=== PATIENT | female | born 1950 | race Caucasian/White ===

== ENCOUNTER 2017-10-11 16:59 | Emergency (ER) | payer OTHER ==
[2017-10-11] MEDS ORDERED: Ibuprofen TAB* 600 MG PO ONE (17:25)
--- NOTE | 2017-10-11 19:10 | RAD ---
Indication: Right thumb injury. 4 views of the right hand demonstrates no fracture. No other bone or joint abnormality is noted. IMPRESSION: NO FRACTURE OF THE RIGHT THUMB IS NOTED.
[2017-10-11 19:17] VITALS: BP 125/89
--- NOTE | 2017-10-11 22:04 | ED ---
Curt Shearer Stephanie, scribed for Semaj Lai MD on 10/11/17 at 1748 . Upper Extremity Pain - HPI Summary HPI Summary: The pt is a 66 y/o F presenting to the ED with c/o R thumb pain that began at 15 :30 today s/p falling on her R hand. Symptoms include swelling in the R thumb. The pt is right handed. She denies head trauma, cough and dysuria. - History of Current Complaint Chief Complaint: EDExtremityUpper Stated Complaint: RT THUMB INJURY Time Seen by Provider: 10/11/17 17:19 Hx Obtained From: Patient Mechanism Of Injury: Fall From A Standing Position Onset/Duration: Started Hours Ago, Still Present Timing: Constant Severity Currently: Moderate Pain Location: Other: - R thumb Aggravating Factor(s): Movement Alleviating Factor(s): Ice Associated Signs & Symptoms: Positive: Swelling - Allergies/Home Medications Allergies/Adverse Reactions: Allergies Allergy/AdvReac Type Severity Reaction Status Date / Time MS Penicillins [Penicillins] Allergy Severe Swelling Verified 10/11/17 17:05 MS Clarithromycin Allergy Intermediate See Comment Verified 10/11/17 17:05 [From Biaxin] MS Codeine [Codeine] Allergy Intermediate Hallucinati Verified 10/11/17 17:05 ons ANTIBIOTIC OINTMENT Allergy Hives Uncoded 10/11/17 17:05 bandaids Allergy Rash Uncoded 10/11/17 17:05 CELERY Allergy Swelling Uncoded 10/11/17 17:05 ENVIROMENTAL Allergy Unknown Uncoded 10/11/17 17:05 Reaction Details MELONS Allergy Swelling Uncoded 10/11/17 17:05 PMH/Surg Hx/FS Hx/Imm Hx Endocrine/Hematology History: Reports: Hx Diabetes - Insulin Resistant Denies: Hx Thyroid Disease Cardiovascular History: Denies: Hx Hypertension, Hx Pacemaker/ICD Respiratory History: Reports: Hx Asthma, Hx Pneumonia - with sepsis 05/08/14, Hx Sleep Apnea, Other Respiratory Problems/Disorders - H/O PNA Denies: Hx Chronic Obstructive Pulmonary Disease (COPD) GI History: Reports: Hx Diverticulosis - Diverticulosis, Hx Gastroesophageal Reflux Disease - HX OF Denies: Hx Ulcer Musculoskeletal History: Reports: Hx Arthritis - Left Shoulder; LEFT HIP; RIGHT HAND, Other Musculoskeletal History - Chronic Neck Pain Sensory History: Reports: Hx Cataracts - MILD, Hx Contacts or Glasses - DOESN'T WEAR CONTACTS OFTEN Denies: Hx Hearing Aid Opthamlomology History: Reports: Hx Cataracts - MILD, Hx Contacts or Glasses - DOESN'T WEAR CONTACTS OFTEN Neurological History: Reports: Other Neuro Impairments/Disorders - FACIAL ASYMETRY 2008-02 MOSTLY RESOLVED Psychiatric History: Reports: Hx Anxiety Denies: Hx Panic Disorder - Cancer History Cancer Type, Location and Year: SKIN PRE-CANCEROUS Hx Chemotherapy: No Hx Radiation Therapy: No - Surgical History Surgery Procedure, Year, and Place: [place] teeth out at age 18,. tonsillectomy at age 10. CERVICAL BIOPSY. RHYTIDECTOMY- 11/13/15- DR DEL CASTILLO Hx Anesthesia Reactions: No Infectious Disease History: No Infectious Disease History: Reports: Hx Shingles - 12/01 Denies: Hx Hepatitis, Hx Human Immunodeficiency Virus (HIV), Traveled Outside the [place] in Last 30 Days - Family History Known Family History: Negative: Renal Disease - Social History Occupation: Employed Full-time Lives: With Family Alcohol Use: Rare Hx Substance Use: No Substance Use Type: Reports: None Hx Tobacco Use: No Smoking Status (MU): Never Smoked Tobacco Have You Smoked in the Last Year: No Review of Systems Negative: Fever Negative: Cough Negative: dysuria Positive: Other - R thumb pain Negative: Slurred Speech All Other Systems Reviewed And Are Negative: Yes Physical Exam - Summary Physical Exam Summary: Appearance: Well appearing, no pain distress Skin: warm, intact, dry, reflects adequate perfusion Head/face: normal Eyes: EOMI, HECTOR ENT: normal Neck: supple, non-tender Respiratory: CTA, breath sounds present Cardiovascular: RRR, pulses symmetrical Abdomen: non-tender, soft Bowel Sounds: present Musculoskeletal: volar side bruising at 1st MCP joint. No swelling in thenar eminence, no snuff box tenderness or distal radial tenderness. Neuro: normal, sensory motor intact, A&Ox3 Triage Information Reviewed: Yes Vital Signs On Initial Exam: Initial Vitals Temp Pulse Resp BP Pulse Ox 98.1 F 75 18 153/86 98 10/11/17 17:01 10/11/17 17:01 10/11/17 17:01 10/11/17 17:01 10/11/17 17:01 Vital Signs Reviewed: Yes Procedures - Splinting Location: R hand Pre-Made Type: thumb spica splint Splint: thumb spica Pre-Proc Neuro Vasc Exam: normal Post-Proc Neuro Vasc Exam: normal, unchanged from pre-exam Diagnostics - Vital Signs Vital Signs Temp Pulse Resp BP Pulse Ox 10/11/17 17:01 98.1 F 75 18 153/86 98 - Laboratory Lab Statement: Any lab studies that have been ordered have been reviewed, and results considered in the medical decision making process. - Radiology Hand XRay Xray Interpretation: No Acute Changes Radiology Interpretation Completed By: ED Physician - Normal, Radiologist - NO FRACTURE OF THE RIGHT THUMB IS NOTED. ED physician has reviewed this report. Re-Evaluation - Re-Evaluation First Eval Re-Evaluation Time: 18:39 Change: Improved - The pt's pain has improved. Course/Dx - Course Course Of Treatment: X-rays are negative. Minimal findings on exam. Placed in a thumb spica splint. Rice, ibuprofen. - Diagnoses Differential Diagnosis/HQI/PQRI: Positive: Fracture (Closed), Strain, Sprain Provider Diagnoses: Thumb sprain Discharge - Sign-Out/Discharge Documenting (check all that apply): Discharge/Admit/Transfer - discharge - Discharge Plan Condition: Good Disposition: HOME Patient Education Materials: Finger Sprain (ED) Referrals: Jurgen Day MD [Primary Care Provider] - Additional Instructions: Ice, elevate. Tylenol/ibuprofen as needed. Splint for comfort. See your doctor in 1-2wks if still having pain. - Billing Disposition and Condition Condition: GOOD Disposition: HOME The documentation as recorded by the Curt davila Stephanie accurately reflects the service I personally performed and the decisions made by me, Semaj Lai MD.
== END 2017-10-11 19:15 | disposition home or self-care (01) ==
LOC: ED 16:59
DX: S63.601A Unspecified sprain of right thumb, initial encounter (principal); M79.644 Pain in right finger(s); W19.XXXA Unspecified fall, initial encounter; Y92.9 Unspecified place or not applicable
CPT/HCPCS: 99282; A9270-GY